=== PATIENT | female | born 1965 | race Caucasian/White ===

== ENCOUNTER 2016-12-09 00:40 | Emergency (ER) | payer BC, OTHER ==
[2016-12-09] MEDS ORDERED: Albuterol/Ipratropium 3.0-0.5 MG/3 ML Neb Soln NEB ONE (00:48)
[2016-12-09] MEDS ORDERED: methylPREDNISolone Sodium Succinate 125 MG/2 ML SDV IM ONE (00:49)
--- NOTE | 2016-12-09 00:50 | EDM.PDOC ---
ED HISTORY OF PRESENT ILLNESS - General Chief Complaint: Respiratory Problem Stated Complaint: SHORTNESS OF BREATH/CHEST PAIN Time Seen by Provider: 12/09/16 00:49 Source of Information: Reports: Patient - History of Present Illness INITIAL COMMENTS - FREE TEXT/NARRATIVE: HISTORY AND PHYSICAL: History of present illness: Patient with history of asthma complains of shortness of breath and chest tightness, she also states she has 1/10 pain not associated with radiation to arm neck or jaw no diaphoresis, and is worsened by deep inspiration and I can reproduce with palpation Smoking history No Hospitalization/ intubation Review of systems: As per history of present illness and below otherwise all systems reviewed and negative. Past medical history: As per history of present illness and as reviewed below otherwise noncontributory. Surgical history: As per history of present illness and as reviewed below otherwise noncontributory. Social history: No reported history of drug or alcohol abuse. Family history: As per history of present illness and as reviewed below otherwise noncontributory. Physical exam: HEENT: Atraumatic, normocephalic, pupils reactive, negative for conjunctival pallor or scleral icterus, mucous membranes moist, throat clear, neck supple, nontender, trachea midline. Lungs: Clear to auscultation, breath sounds equal bilaterally, chest nontender. Heart: S1S2, regular, negative for clicks, rubs, or JVD. Abdomen: Soft, nondistended, nontender. Negative for masses or hepatosplenomegaly. Negative for costovertebral tenderness. Pelvis: Stable nontender. Genitourinary: Deferred. Rectal: Deferred. Extremities: Atraumatic, negative for cords or calf pain. Neurovascular unremarkable. Neuro: Awake, alert, oriented. Cranial nerves II through XII unremarkable. Cerebellum unremarkable. Motor and sensory unremarkable throughout. Exam nonfocal. Diagnostics: [] Chest 2 views EKG Therapeutics: [] DuoNeb Solu-Medrol 125 mg IM Impression: [] Asthma exacerbation Reproducible chest wall pain Pulmonary nodule versus granuloma on chest x-ray Definitive disposition and diagnosis as appropriate pending reevaluation and review of above. - Related Data Allergies/ADRs: Allergies Allergy/AdvReac Type Severity Reaction Status Date / Time No Known Allergies Allergy Verified 12/09/16 00:42 Home Meds: Home Meds Blood Pressure Medication 12/09/16 [History] ED ROS GENERAL - Review of Systems Review Of Systems: ROS reveals no pertinent complaints other than HPI. ED EXAM, GENERAL - Physical Exam Exam: See Below Course - Vital Signs Last Recorded V/S: Last Vital Signs Temp 36.6 C 12/09/16 00:43 Pulse 94 12/09/16 00:43 Resp 16 12/09/16 00:43 BP 169/81 H 12/09/16 00:43 Pulse Ox 97 12/09/16 00:59 - Orders/Labs/Meds Orders: Active Orders 24 hr Category Date Time Status EKG Documentation Completion [RC] STAT Care 12/09/16 00:49 Active RT Aerosol Therapy [RC] ASDIRECTED Care 12/09/16 00:49 Active Chest 2V [CR] Stat Exams 12/09/16 00:49 Taken Meds: Medications Discontinued Medications Generic Name Dose Route Start Last Admin Trade Name Maycolq PRN Reason Stop Dose Admin Albuterol/Ipratropium 3 ml 12/09/16 00:48 12/09/16 00:56 Duoneb 3.0-0.5 Mg/3 Ml NEB 12/09/16 00:49 3 ml ONETIME ONE Administration Methylprednisolone Sodium Succinate 125 mg 12/09/16 00:49 12/09/16 00:55 Solu-Medrol IM 12/09/16 00:50 125 mg ONETIME ONE Administration Departure - Departure Time of Disposition: 01:51 Disposition: Home, Self-Care 01 Condition: good Clinical Impression: Asthma exacerbation Clinical Impression: (Ruled Out): Acute asthma Referrals: PCP,None [Primary Care Provider] - Forms: ED Department Discharge Additional Instructions: Medications as prescribed Again there are abnormal findings in the chest x-ray, compare with previous x- ray with your primary care as discussed This is unavailable radiology recommends chest CT as discussed Or unable to followup with your primary care he can reach a local provider and gain appointment as below - My Orders Last 24 Hours: My Active Orders 12/09/16 00:49 EKG Documentation Completion [RC] STAT RT Aerosol Therapy [RC] ASDIRECTED Chest 2V [CR] Stat - Assessment/Plan Last 24 Hours: My Active Orders 12/09/16 00:49 EKG Documentation Completion [RC] STAT RT Aerosol Therapy [RC] ASDIRECTED Chest 2V [CR] Stat
[2016-12-09 02:11] VITALS: BP 160/74
--- NOTE | 2016-12-09 10:57 | CR ---
EXAM DATE: 12/09/16 PATIENT'S AGE: 51 Patient: BIA HONEYCUTT Facility: [place], [place] Site . Site : [id number] Study: XRay Chest [id number] 1:26:40 AM Ordering Physician: Narayan Ruiz Final Report: INDICATION: Pain. Shortness of breath. TECHNIQUE: Chest 2 views. COMPARISON: None available FINDINGS: Cardiovascular and mediastinum: Normal cardiac size. An ectatic, unfolded aorta. Lungs and pleural spaces: Scattered small pulmonary nodular opacities which could represent granulomas. No consolidations or pleural effusions. Bones and soft tissues: An electrode array and leads projecting over the thoracic spine. IMPRESSION: No consolidation. Scattered small pulmonary nodules could represent granulomas. Recommend comparison with prior studies, if available, to ensure stability, and if no prior study is available, followup with CT. Dictated by Reymundo Hannah MD @ 12/09/2016 1:35:28 AM Dictated by: Reymundo Hannah MD @ 12/09/2016 01:35:37 (Electronic Signature) Report Signed by Proxy and Original Signed Document filed in the Medical Record. [facility]
== END 2016-12-09 02:08 | disposition home or self-care (01) ==
LOC: MW.ED 00:40
DX: J45.901 Unspecified asthma with (acute) exacerbation (principal)
CPT/HCPCS: 71020; 93005; 94664; 96372; 99285; J2930; 99284